=== PATIENT | male | born 1950 | race Caucasian/White ===

== ENCOUNTER 2022-02-12 09:18 | Outpatient (CLI) | payer OTHER | END 2022-02-12 23:59 | disposition home or self-care (01) | LOC: LAB 09:18 | PROVIDERS: ATTEND Chiropractor | DX: M19.041 Primary osteoarthritis, right hand (principal); E03.9 Hypothyroidism, unspecified | CPT/HCPCS: 36415; 73120; 84439; 84443; 84481 ==